=== PATIENT | female | born 1990 | race Caucasian/White ===

== ENCOUNTER 2021-12-16 00:27 | Inpatient (IN) | payer OTHER ==
[2021-12-16 05:06] LABS: Absolute Neutrophil Ct (ANC) 7.82 x10^3/uL (1.4-6.9); Basophil (Absolute #) 0.04 x10^3/uL (0-0.4); Eosinophil % 0.7 % (0.00-5.0); Eosinophil (Absolute #) 0.08 x10^3/uL (0-0.5); Hematocrit 34.2 % (35-47); Hemoglobin 11.3 g/dL (12.0-16.0); Lymphocyte (Absolute #) 2.64 x10^3/uL (1.0-4.6); Mean Cell Volume 86.6 fL (78-100); Mean Corpuscular Hemoglobin 28.6 pg (26-32); Mean Platelet Volume 10.8 fL (7.5-11.0); Monocyte (Absolute #) 0.85 x10^3/uL (0.0-1.3); Monocytes % 7.4 % (0.0-12.0); Platelet Count 193 x10^3/uL (150-450); Red Blood Count 3.95 x10^6/uL (4.1-5.4); Red Cell Distribution Width 14.5 % (11.5-14.0); White Blood Count 11.5 x10^3/uL (4.0-10.5)
[2021-12-16 05:32] LABS: Amphetamine,Urine NEGATIVE (NEGATIVE); Barbiturate,Urine NEGATIVE (NEGATIVE); Benzodiazepine,Urine NEGATIVE (NEGATIVE); Cocaine,Urine NEGATIVE (NEGATIVE); Methadone,Urine NEGATIVE (NEGATIVE); Opiate,Urine NEGATIVE (NEGATIVE); PCP,Urine NEGATIVE (NEGATIVE); THC,Urine NEGATIVE (NEGATIVE)
[2021-12-16 05:41] LABS: ABO TYPING O; Antibody Screen NEGATIVE (NEGATIVE); RH TYPING NEGATIVE
[2021-12-16 05:45] LABS: Bacteria FEW /HPF (NEGATIVE); Epithelial Cells RARE /HPF (FEW); Mucus SLIGHT /HPF (NEGATIVE)
[2021-12-16 05:48] LABS: Appearance SLIGHTLY CLOUDY (CLEAR); Bilirubin NEGATIVE (NEGATIVE); Glucose NEGATIVE (NEGATIVE); Ketones NEGATIVE (NEGATIVE); Ph 6.5 (5-6); Protein,Urine Dip 30 (Negative); RBC NEGATIVE Ery/ul (0-5); Specific Gravity 1.015 (1.005-1.025); Urobilinogen 0.2 mg/dL (0-1)
[2021-12-16 05:49] LABS: Dipstick done @ ? MAIN LAB; Nitrite NEGATIVE (NEGATIVE); Urine Cultured Indicated? YES
[2021-12-16] MEDS ORDERED: Lactated Ringers 1,000 ML IV ONE ×4 (06:47→16:47)
[2021-12-16] MEDS ORDERED: PITOCIN 30 UNITS/ LR 500 ML 500 ML IV ONE (06:47)
[2021-12-16] MEDS: Lactated Ringers 1,000 ML IV SCH ×2 (06:51→10:18)
[2021-12-16] MEDS ORDERED: BRETHINE 1 MG/ML SQ PRN (07:00)
[2021-12-16] MEDS ORDERED: XYLOCAINE 1% HCL 20 ML MDV IJ PRN (08:00)
[2021-12-16] MEDS ORDERED: PITOCIN 30 UNITS/ LR 500 ML 30 UNITS/500 ML PLAST..BAG IV SCH (08:00)
[2021-12-16] MEDS ORDERED: LANSINOH 40 GM TOP PRN (15:50)
[2021-12-16] MEDS ORDERED: TYLENOL EXTRA STRENGTH 500 MG PO PRN ×2 (15:50→22:00)
[2021-12-16] MEDS ORDERED: CORTISONE 1% CREAM TP PRN (15:50)
[2021-12-16] MEDS ORDERED: TUCKS TP PRN (15:50)
[2021-12-16] MEDS ORDERED: Anucort-HC SUPPOSITORY PR PRN (15:50)
[2021-12-16] MEDS ORDERED: Ambien 10 MG PO PRN (15:50)
[2021-12-16] MEDS ORDERED: Dermoplast Spray TP PRN (15:50)
[2021-12-16] MEDS ORDERED: Dulcolax 10 MG SUPP PR PRN (15:50)
[2021-12-16] MEDS ORDERED: NORCO 5/325 MG PO PRN (15:50)
[2021-12-16] MEDS ORDERED: Mylicon 80MG PO PRN (15:50)
[2021-12-16] MEDS: MOTRIN 400 MG PO PRN (18:20)
[2021-12-16] MEDS ORDERED: Zofran 4 MG/2 ML VIAL IV PRN (22:00)
[2021-12-16] MEDS: Docusate Sodium 100 MG PO SCH (22:00)
[2021-12-16] MEDS ORDERED: CYTOTEC PO SCH (23:00)
[2021-12-17] MEDS: MOTRIN 400 MG PO PRN ×3 (02:15→22:21)
[2021-12-17 04:58] LABS: Absolute Neutrophil Ct (ANC) 11.86 x10^3/uL (1.4-6.9); Basophil (Absolute #) 0.04 x10^3/uL (0-0.4); Eosinophil % 0.4 % (0.00-5.0); Eosinophil (Absolute #) 0.06 x10^3/uL (0-0.5); Hematocrit 28.9 % (35-47); Hemoglobin 9.5 g/dL (12.0-16.0); Lymphocyte (Absolute #) 2.18 x10^3/uL (1.0-4.6); Lymphocytes % 14.2 % (24.0-44.0); Mean Cell Volume 86.8 fL (78-100); Mean Corpuscular Hemoglobin 28.5 pg (26-32); Mean Corpuscular Hgb Concent. 32.9 g/dL (32-36); Mean Platelet Volume 11.2 fL (7.5-11.0); Monocytes % 7.2 % (0.0-12.0); Neutrophil % 77.4 % (36.0-66.0); Platelet Count 198 x10^3/uL (150-450); Red Blood Count 3.33 x10^6/uL (4.1-5.4); Red Cell Distribution Width 14.7 % (11.5-14.0); White Blood Count 15.3 x10^3/uL (4.0-10.5)
[2021-12-17] MEDS ORDERED: Lactated Ringers 1,000 ML IV ONE (07:00)
[2021-12-17] MEDS ORDERED: PITOCIN 30 UNITS/ LR 500 ML 30 UNITS/500 ML PLAST..BAG IV SCH (07:00)
[2021-12-17] MEDS ORDERED: Ephedrine Sulfate 50 MG/ML IV PRN (08:00)
[2021-12-17] MEDS ORDERED: FENTANYL 2 MCG-BUPIV 0.125%-NS 250 ML Epidur 250 ML EPIDURAL SCH (08:00)
[2021-12-17] MEDS ORDERED: FERREX 150 PO SCH (10:00)
[2021-12-17] MEDS ORDERED: Rhogam Plus 300 MCG IM ONE (10:00)
[2021-12-17] MEDS: Docusate Sodium 100 MG PO SCH ×2 (11:57→22:21)
--- NOTE | 2021-12-17 15:48 | PCM.NOTE ---
Date and Time: 12/17/21 5175 Subjective Assessment: PPD 1 SP PT RESTING IN BED AND DOING WELL. VSS AFEBRILE ABD; SOFT UTERUS; FIRM LOCHIA; MILD EXT; MILD EDEMA 1/4 B/L HGB; 9.5 A/P SP PPD 1 WITH MANUAL EXTRACTION OF PLACENTA DOING WELL ANTICIPATE DISCHARGE TOMORROW OBJECTIVE DATA Vital Signs: Vital Signs - 24 hr Temp Pulse Resp BP Pulse Ox 12/17/21 14:00 93 H 20 114/59 12/17/21 08:00 98.4 F 95 H 20 112/53 12/17/21 04:00 98.5 F 98 H 19 123/60 98 12/17/21 02:37 98.5 F 93 H 19 104/58 98 12/17/21 00:00 98.3 F 96 H 18 107/56 98 12/16/21 22:00 122/58 12/16/21 20:00 98.3 F 106 H 19 124/59 97 12/16/21 18:00 100 H 20 118/64 12/16/21 17:30 84 18 106/54 12/16/21 17:00 81 18 114/54 100 12/16/21 16:30 95 H 18 107/55 100 12/16/21 16:15 91 H 22 100/56 100 12/16/21 16:00 102 H 20 100/56 Pain Assessment - Last Documented Pain Intensity [Medial] 0 Pain Intensity 0 Pain Scale Used 0-10 Pain Scale Intake and Output: Intake & Output 12/15/21 12/16/21 12/17/21 12/18/21 11:59 11:59 11:59 11:59 Intake Total 2000 6800 Output Total 50 1050 Balance 1950 5750 Weight 108.862 kg Lab Results: Lab Results-Last 24 Hours 12/16/21 12/17/21 Range/Units 16:45 04:25 WBC 15.3 H (4.0-10.5) x10^3/uL RBC 3.33 L (4.1-5.4) x10^6/uL Hgb 9.5 L (12.0-16.0) g/dL Hct 28.9 L (35-47) % MCV 86.8 (78-100) fL MCH 28.5 (26-32) pg MCHC 32.9 (32-36) g/dL RDW 14.7 H (11.5-14.0) % Plt Count 198 (150-450) x10^3/uL MPV 11.2 H (7.5-11.0) fL Gran % 77.4 H (36.0-66.0) % Immature Gran % (Auto) 0.5 H (0.00-0.4) % Nucleat RBC Rel Count 0.0 (0.00-0.1) % Eos # (Auto) 0.06 (0-0.5) x10^3/uL Immature Gran # (Auto) 0.08 H (0.00-0.03) x10^3u/L Absolute Lymphs (auto) 2.18 (1.0-4.6) x10^3/uL Absolute Monos (auto) 1.10 (0.0-1.3) x10^3/uL Absolute Nucleated RBC 0.00 (0.00-0.01) x10^3u/L Lymphocytes % 14.2 L (24.0-44.0) % Monocytes % 7.2 (0.0-12.0) % Eosinophils % 0.4 (0.00-5.0) % Basophils % 0.3 (0.0-0.4) % Absolute Granulocytes 11.86 H (1.4-6.9) x10^3/uL Basophils # 0.04 (0-0.4) x10^3/uL Screen SEE SEPARATE REPORT Assessment/Plan (1) Vaginal delivery Current Visit: Yes Status: Acute Code(s): O80 - ENCOUNTER FOR FULL-TERM UNCOMPLICATED DELIVERY (2) Retained placenta Current Visit: Yes Status: Acute Code(s): O73.0 - RETAINED PLACENTA WITHOUT HEMORRHAGE
[2021-12-17 22:52] VITALS: O2SAT 100
--- NOTE | 2021-12-18 07:34 | PCM.NOTE ---
Date and Time: 12/18/21732 Subjective Assessment: PPD 2 SP PT RESTING IN BED AND DOING VERY WELL VSS AFEBRILE ABD; SOFT UTERUS; FIRM LOCHIA; MILD A/P SP PPD 2 DC HOME TODAY FU OFFICE IN 3 WKS OBJECTIVE DATA Vital Signs: Vital Signs - 24 hr Temp Pulse Resp BP Pulse Ox 12/18/21 02:00 97.8 F 88 18 106/57 12/17/21 20:00 97.9 F 83 18 127/73 100 12/17/21 14:00 93 H 20 114/59 12/17/21 08:00 98.4 F 95 H 20 112/53 Pain Assessment - Last Documented Pain Intensity [Medial] 0 Pain Intensity 5 Pain Scale Used 0-10 Pain Scale Intake and Output: Intake & Output 12/15/21 12/16/21 12/17/21 12/18/21 11:59 11:59 11:59 11:59 Intake Total 2000 6800 1400 Output Total 50 1050 Balance 1950 5750 1400 Weight 108.862 kg Assessment/Plan (1) Vaginal delivery Current Visit: Yes Status: Acute Code(s): O80 - ENCOUNTER FOR FULL-TERM UNCOMPLICATED DELIVERY (2) Retained placenta Current Visit: Yes Status: Acute Code(s): O73.0 - RETAINED PLACENTA WITHOUT HEMORRHAGE
--- NOTE | 2021-12-18 07:37 | PCM.DS ---
Discharge Summary Date of Admission: 12/16/21 08:47 Admitting Physician: GUCCI HUNTER DO Consults: Consults on Case 12/17/21 08:00 Notify Anesthesia Provider PRN Primary Care Provider: MANUEL CORLEY Allergies Allergies No Known Drug Allergies Allergy (Verified 12/16/21 04:46) Hospital Summary - Hospital Course Hospital Course: PT ADMITTED ON DECEMBER 16 FOR EARLY LABOR AND WAS SUBSEQUENTLY INDUCED AND DELIVERED LIVE [facility]ABY [facility]Y VIA WITHOUT COMPLICATION ON THIS DAY. DURING PERIOD DID WELL AND NOW STABLE FOR DISCHARGE. PT HAD STABLE HGB LEVEL AT 9.5 AND WAS ADVISED TO FU IN OFFICE IN 3 WKS FOR CARE. ALL QUESTIONS ANSWERED TO HER SATISFACTION AND AT THIS TIME PT STABLE FOR DISCHARGE. DURING DELIVERY PT WAS NOTED HAVING AN ELAPSED TIME OF ABOUT 30 MINUTES BEFORE WHICH PLACENTA HAD NOT DELIVERED AND MANUAL REMOVAL OF PLACENTA WAS TAKEN PLACE WITHOUT COMPLICATION. - Vitals & Intake/Output Vital Signs: Vital Signs Temperature 97.8 F 12/18/21 02:00 Pulse Rate 88 12/18/21 02:00 Respiratory Rate 18 12/18/21 02:00 Blood Pressure 106/57 12/18/21 02:00 O2 Sat by Pulse Oximetry 100 12/17/21 20:00 Intake & Output: Intake & Output 12/15/21 12/16/21 12/17/21 12/18/21 11:59 11:59 11:59 11:59 Intake Total 2000 6800 1400 Output Total 50 1050 Balance 1950 5750 1400 Weight 108.862 kg - Lab Result Diagrams: 12/17/21 04:25 Micro Results-Entire Visit: Microbiology 12/16/21 19:00 Urine Culture - Preliminary Catherized NO GROWTH TO DATE 12/16/21 05:30 Urine Culture - Final Clean Catch Midstream MIXED GREGORY; 3 OR MORE TYPES. NO PREDOMINANT ORGANISM. NO FURTHER WORKUP. PLEASE RESUBMIT IF CLINICALLY INDICATED. Final Diagnosis/Problem List - Final Discharge Diagnosis/Problem (1) Vaginal delivery Current Visit: Yes Status: Acute Code(s): O80 - ENCOUNTER FOR FULL-TERM UNCOMPLICATED DELIVERY (2) Retained placenta Current Visit: Yes Status: Acute Code(s): O73.0 - RETAINED PLACENTA WITHOUT HEMORRHAGE - Discharge Disposition: Home, Self-Care Condition: Stable Prescriptions: No Action Vits96/Iron Fum/Folic [ Tablet] 1 each PO DAILY Follow up with: MANUEL CORLEY MD [Primary Care Provider] - GUCCI HUNTER DO [ACTIVE STAFF] - 3 weeks
[2021-12-18 07:57] LABS: HBsAg Screen Negative (Negative)
[2021-12-18] MEDS: MOTRIN 400 MG PO PRN (08:50)
[2021-12-18 11:42] VITALS: BP 130/72; PULSE 103
== END 2021-12-18 12:00 | disposition home or self-care (01) | DRG 807 ==
LOC: OB 04:03 → OBSVTOIN 08:47 → OB 08:47
PROVIDERS: ADMIT Obstetrics & Gynecology; ATTEND Obstetrics & Gynecology
PROC: 10E0XZZ Delivery of Products of Conception, External Approach (ICD-10-PCS; principal; 2021-12-16)
DX: O69.81X0 Labor and delivery complicated by cord around neck, without compression, not applicable or unspecified (principal); Z37.0 Single live birth; O73.0 Retained placenta without hemorrhage; Z3A.39 39 weeks gestation of pregnancy
CPT/HCPCS: 36415; 59409; 80307; 81015; 84112; 85025; 85461; 86850; 86900; 86901; 87086; 87340; 96372; J2590; J2790; A9270-GY

== ENCOUNTER 2022-01-22 01:11 | Emergency (ER) | payer OTHER ==
[2022-01-22 01:59] LABS: Basophil (Absolute #) 0.03 x10^3/uL (0-0.4); Eosinophil % 2.4 % (0.00-5.0); Eosinophil (Absolute #) 0.18 x10^3/uL (0-0.5); Hematocrit 37.9 % (35-47); Hemoglobin 11.8 g/dL (12.0-16.0); Lymphocyte (Absolute #) 3.55 x10^3/uL (1.0-4.6); Lymphocytes % 48.2 % (24.0-44.0); Mean Cell Volume 86.5 fL (78-100); Mean Corpuscular Hemoglobin 26.9 pg (26-32); Mean Corpuscular Hgb Concent. 31.1 g/dL (32-36); Mean Platelet Volume 9.8 fL (7.5-11.0); Monocyte (Absolute #) 0.58 x10^3/uL (0.0-1.3); Monocytes % 7.9 % (0.0-12.0); Neutrophil % 40.8 % (36.0-66.0); Platelet Count 319 x10^3/uL (150-450); Red Blood Count 4.38 x10^6/uL (4.1-5.4); Red Cell Distribution Width 13.7 % (11.5-14.0); White Blood Count 7.4 x10^3/uL (4.0-10.5)
[2022-01-22 02:13] LABS: D-DIMER QUANTITATIVE 0.26 mg/L (0.0-0.50); INR 0.99 (0.8-3.0); PROTIME 10.5 SECONDS (9.4-12.5); PTT 28.2 SECONDS (25.1-36.5)
[2022-01-22 02:23] LABS: ALBUMIN 4.9 g/dL (3.5-5.0); ALKALINE PHOSPHATASE 91 U/L (38-126); BLOOD UREA NITROGEN 14 mg/dL (7-17); CHLORIDE 103 mmol/L (98-107); Calcium 9.7 mg/dL (8.4-10.2); Carbon Dioxide 24 mmol/L (22-30); Creatinine 1 0.75 mg/dL (0.52-1.04); EST GLOMERULAR FILTRATION RATE > 60.0 ML/MIN; Glucose 95 mg/dL (74-106); NT PRO BNP 64.5 pg/mL (0-450); Potassium 3.9 mmol/L (3.5-5.1); SGOT/AST 43 U/L (14-36); SGPT/ALT 39 U/L (0-35); SODIUM 139 mmol/L (137-145); Total Protein 7.7 g/dL (6.3-8.2)
--- NOTE | 2022-01-22 02:48 | ERPHSYRPT ---
- History of Present Illness Time Seen by Provider: 01/22/22 01:20 Historian: patient Exam Limitations: no limitations Patient Subjective Stated Complaint: pt states she was sleeping and was awoken by stabbing pain in sternum and right and left upper ribs. Triage Nursing Assessment: pt is holding chest and grimacing, states she having pain in chest and is nauseated at this time. Physician History: Patient is a 31-year-old female presents to our ED for evaluation of chest pain. Patient states she was sleeping and the chest pain awoke her from her sleep. Chest pain described as a stabbing sensation that is substernal. Patient also states she feels a pain in her left upper ribs. Patient is mildly nauseated. No vomiting. No significant cardiac history. Symptoms are mild to moderate in intensity. No specific worsening or improving factors. Patient denies a history of the same. She voices no other complaints or concerns at this time. Timing/Duration: today Activities at Onset: none Quality: sharpness Location: substernal Chest Pain Radiation: no radiation Severity of Pain-Max: moderate Severity of Pain-Current: mild Modifying Factors: Improves With: nothing Associated Symptoms: nausea, No palpitations, No heartburn, No diaphoresis, No fever, No syncope, No headache, No edema, No back pain Prior Chest Pain/Cardiac Workup: no prior chest pain Nitro Today/Relief: no nitro taken today Aspirin Treatment Today: no aspirin today Allergies/Adverse Reactions: No Known Drug Allergies Allergy (Verified 12/16/21 04:46) Home Medications: Vits96/Iron Fum/Folic [ Tablet] 1 each PO DAILY 12/16/21 [History] Travel Risk - International Travel Have you traveled outside of the country in past 3 weeks: No - Coronavirus Screening Are you exhibiting any of the following symptoms?: No Close contact with a COVID-19 positive Pt in past 14-21 Days: No - Vaccine Status Have you recieved a Covid-19 vaccination: No - Review of Systems Constitutional: No Symptoms, No Fever, No Chills Eyes: No Symptoms Ears, Nose, & Throat: No Symptoms Respiratory: No Symptoms, No Cough, No Dyspnea Cardiac: No Symptoms, No Chest Pain, No Edema, No Syncope Abdominal/Gastrointestinal: No Symptoms, No Abdominal Pain, No Nausea, No Vomiting, No Diarrhea Genitourinary Symptoms: No Symptoms, No Dysuria Musculoskeletal: No Symptoms, No Back Pain, No Neck Pain Skin: No Symptoms, No Rash Neurological: No Symptoms, No Dizziness, No Focal Weakness, No Sensory Changes Psychological: No Symptoms Endocrine: No Symptoms Hematologic/Lymphatic: No Symptoms All Other Systems: Reviewed and Negative - Past Medical History Pertinent Past Medical History: Yes Neurological History: No Pertinent History ENT History: No Pertinent History Cardiac History: No Pertinent History Respiratory History: No Pertinent History Endocrine Medical History: No Pertinent History Musculoskeletal History: No Pertinent History GI Medical History: No Pertinent History History: No Pertinent History Psycho-Social History: No Pertinent History Female Reproductive Disorders: No Pertinent History Other Medical History: 2012, GDM, VACCUM DELIVERY - Past Surgical History Past Surgical History: Yes Neuro Surgical History: No Pertinent History Cardiac: No Pertinent History Respiratory: No Pertinent History Gastrointestinal: Appendectomy Genitourinary: No Pertinent History Musculoskeletal: No Pertinent History Female Surgical History: No Pertinent History Other Surgical History: APPY IN 2019 - Social History Smoking Status: Former smoker Exposure to second hand smoke: No Drug Use: none - Female History Hx Last Menstrual Period: 11 months ago Hx Now: No - Nursing Vital Signs Nursing Vital Signs: Initial Vital Signs Temperature 97.5 F 01/22/22 01:12 Pulse Rate 80 01/22/22 01:12 Respiratory Rate 18 01/22/22 01:12 Blood Pressure 150/89 01/22/22 01:12 O2 Sat by Pulse Oximetry 100 01/22/22 01:12 Pain Scale Pain Intensity 2 - Physical Exam General Appearance: no apparent distress, alert Eye Exam: PERRL/EOMI, eyes nml inspection Ears, Nose, Throat Exam: normal ENT inspection, moist mucous membranes Neck Exam: normal inspection, non-tender, supple, full range of motion Respiratory Exam: normal breath sounds, lungs clear, No respiratory distress Cardiovascular Exam: regular rate/rhythm, normal heart sounds, normal peripheral pulses Gastrointestinal/Abdomen Exam: soft, No tenderness, No mass Back Exam: normal inspection, No CVA tenderness, No vertebral tenderness Extremity Exam: normal inspection, normal range of motion Neurologic Exam: alert, oriented x 3, cooperative, normal mood/affect, sensation nml, No motor deficits Skin Exam: normal color, warm, dry Lymphatic Exam: No adenopathy SpO2 Interpretation: normal SpO2: 96 O2 Delivery: Room Air - Course Nursing assessment & vital signs reviewed: Yes EKG Interpreted by Me: RATE (63), Sinus Rhythm, NORMAL AXIS, NORMAL INTERVALS, Non-specific ST Changes - Radiology Exams Chest X-ray Interpretation: Interpreted by me (Lungs are clear. Normal cardiac silhouette. Intact bony thorax) Ordered Tests: Active Orders 24 hr Category Date Time Status Catalyst Operator STAT Care 01/22/22 01:27 Active EKG-ER Only STAT Care 01/22/22 01:26 Active IV Insertion STAT Care 01/22/22 01:26 Active Pulse Oximetry (ED) STAT Care 01/22/22 01:26 Active CHEST 1 VIEW (PORTABLE) Stat Exams 01/22/22 01:27 Taken CBC Q48H Lab 01/23/22 06:00 Ordered CBC Q48H Lab 01/25/22 06:00 Ordered CBC Q48H Lab 01/27/22 06:00 Ordered CBC Q48H Lab 01/29/22 06:00 Ordered CBC Q48H Lab 01/31/22 06:00 Ordered CBC Q48H Lab 02/02/22 06:00 Ordered CBC Q48H Lab 02/04/22 06:00 Ordered CBC W DIFF Stat Lab 01/22/22 01:54 Completed CMP Stat Lab 01/22/22 01:54 Completed D-DIMER QUANTITATIVE Stat Lab 01/22/22 01:54 Completed NT PRO BNP Stat Lab 01/22/22 01:54 Completed PROTIME WITH INR Stat Lab 01/22/22 01:54 Completed PTT Q4H Lab 01/23/22 01:30 Ordered PTT Q4H Lab 01/23/22 05:30 Ordered PTT Q4H Lab 01/23/22 09:30 Ordered PTT Q4H Lab 01/23/22 13:30 Ordered PTT Q4H Lab 01/23/22 17:30 Ordered PTT Q4H Lab 01/23/22 21:30 Ordered PTT Stat Lab 01/22/22 01:54 Completed TROPONIN Stat Lab 01/22/22 01:54 Completed TROPONIN Stat Lab 01/22/22 03:54 Completed Lab/Rad Data: Laboratory Result Diagrams 01/22/22 01:54 01/22/22 01:54 Laboratory Results 01/22/22 01/22/22 01/22/22 Range/Units 03:54 01:54 01:54 WBC (4.0-10.5) x10^3/uL RBC (4.1-5.4) x10^6/uL Hgb (12.0-16.0) g/dL Hct (35-47) % MCV (78-100) fL MCH (26-32) pg MCHC (32-36) g/dL RDW (11.5-14.0) % Plt Count (150-450) x10^3/uL MPV (7.5-11.0) fL Gran % (36.0-66.0) % Immature Gran % (Auto) (0.00-0.4) % Nucleat RBC Rel Count (0.00-0.1) % Eos # (Auto) (0-0.5) x10^3/uL Immature Gran # (Auto) (0.00-0.03) x10^3u/L Absolute Lymphs (auto) (1.0-4.6) x10^3/uL Absolute Monos (auto) (0.0-1.3) x10^3/uL Absolute Nucleated RBC (0.00-0.01) x10^3u/L Lymphocytes % (24.0-44.0) % Monocytes % (0.0-12.0) % Eosinophils % (0.00-5.0) % Basophils % (0.0-0.4) % Absolute Granulocytes (1.4-6.9) x10^3/uL Basophils # (0-0.4) x10^3/uL PT 10.5 (9.4-12.5) SECONDS INR 0.99 (0.8-3.0) APTT 28.2 (25.1-36.5) SECONDS D-Dimer 0.26 (0.0-0.50) mg/L Sodium (137-145) mmol/L Potassium (3.5-5.1) mmol/L Chloride (98-107) mmol/L Carbon Dioxide (22-30) mmol/L Anion Gap (5-15) MEQ/L BUN (7-17) mg/dL Creatinine (0.52-1.04) mg/dL Estimated GFR ML/MIN Glucose (74-106) mg/dL Calcium (8.4-10.2) mg/dL Total Bilirubin (0.2-1.3) mg/dL AST (14-36) U/L ALT (0-35) U/L Alkaline Phosphatase (38-126) U/L Troponin I < 0.012 < 0.012 (0.000-0.034) ng/mL NT-Pro-B Natriuret Pep (0-450) pg/mL Serum Total Protein (6.3-8.2) g/dL Albumin (3.5-5.0) g/dL 01/22/22 01/22/22 Range/Units 01:54 01:54 WBC 7.4 (4.0-10.5) x10^3/uL RBC 4.38 (4.1-5.4) x10^6/uL Hgb 11.8 L (12.0-16.0) g/dL Hct 37.9 (35-47) % MCV 86.5 (78-100) fL MCH 26.9 (26-32) pg MCHC 31.1 L (32-36) g/dL RDW 13.7 (11.5-14.0) % Plt Count 319 (150-450) x10^3/uL MPV 9.8 (7.5-11.0) fL Gran % 40.8 (36.0-66.0) % Immature Gran % (Auto) 0.3 (0.00-0.4) % Nucleat RBC Rel Count 0.0 (0.00-0.1) % Eos # (Auto) 0.18 (0-0.5) x10^3/uL Immature Gran # (Auto) 0.02 (0.00-0.03) x10^3u/L Absolute Lymphs (auto) 3.55 (1.0-4.6) x10^3/uL Absolute Monos (auto) 0.58 (0.0-1.3) x10^3/uL Absolute Nucleated RBC 0.00 (0.00-0.01) x10^3u/L Lymphocytes % 48.2 H (24.0-44.0) % Monocytes % 7.9 (0.0-12.0) % Eosinophils % 2.4 (0.00-5.0) % Basophils % 0.4 (0.0-0.4) % Absolute Granulocytes 3.00 (1.4-6.9) x10^3/uL Basophils # 0.03 (0-0.4) x10^3/uL PT (9.4-12.5) SECONDS INR (0.8-3.0) APTT (25.1-36.5) SECONDS D-Dimer (0.0-0.50) mg/L Sodium 139 (137-145) mmol/L Potassium 3.9 (3.5-5.1) mmol/L Chloride 103 (98-107) mmol/L Carbon Dioxide 24 (22-30) mmol/L Anion Gap 16.0 H (5-15) MEQ/L BUN 14 (7-17) mg/dL Creatinine 0.75 (0.52-1.04) mg/dL Estimated GFR > 60.0 ML/MIN Glucose 95 (74-106) mg/dL Calcium 9.7 (8.4-10.2) mg/dL Total Bilirubin 0.50 (0.2-1.3) mg/dL AST 43 H (14-36) U/L ALT 39 H (0-35) U/L Alkaline Phosphatase 91 (38-126) U/L Troponin I (0.000-0.034) ng/mL NT-Pro-B Natriuret Pep 64.5 (0-450) pg/mL Serum Total Protein 7.7 (6.3-8.2) g/dL Albumin 4.9 (3.5-5.0) g/dL - Progress Progress: improved Air Movement: good Progress Note: Patient reassessed. She is asymptomatic. D-dimer negative. Chest x-ray negative. Troponin negative x2. EKG normal sinus rhythm. No indication for further work-up at this time. Will discharge home. Patient agrees to follow-up with her primary care doctor within 48 hours for evaluation. Portions of this note were created with voice recognition technology. There may be grammatical, spelling, punctuation or sound alike errors 01/22/22 05:09 Blood Culture(s) Obtained: No Antibiotics given: No Counseled pt/family regarding: lab results, diagnosis, need for follow-up, rad r esults - Departure Departure Disposition: Home Clinical Impression: Chest pain Condition: Stable Critical Care Time: No Referrals: MANUEL CORLEY MD [Primary Care Provider] - Follow up/PCP as directed Additional Instructions: Discharge/Care Plan IAN MERIDA was seen on 01/22/22 in the Emergency Room. The patient was counseled regarding Diagnosis,Lab results, Imaging studies, need for follow up and when to return to the Emergency Room. Prescriptions given: Discharge Note I have spoken with the patient and/or caregivers. I have explained the patient's condition, diagnosis and treatment plan based on the information available to me at this time. I have answered the patient's and/or caregiver's questions and addressed any concerns. The patient and/or caregivers have as good understanding of the patient's diagnosis, condition and treatment plan as can be expected at this point. The vital signs have been stable. The patient's condition is stable and appropriate for discharge from the emergency department. The patient will pursue further outpatient evaluation with the primary care physician or other designated or consulting physician as outlined in the discharge instructions. The patient and/or caregivers are agreeable to this plan of care and follow-up instructions have been explained in detail. The patient and/or caregivers have received these instruction. The patient/and or caregivers are aware that any significant change in condition or worsening of symptoms should prompt an immediate return to this or the closest emergency department or call 911.
[2022-01-22 04:18] VITALS: BP 131/79; PULSE 73
[2022-01-22 05:11] VITALS: O2SAT 96
--- NOTE | 2022-01-22 09:45 | XRAY ---
Indication: Chest pain. Comparison: None Portable chest demonstrates normal heart, lungs, and bony thorax.
== END 2022-01-22 05:17 | disposition home or self-care (01) ==
LOC: ED 01:11
DX: R07.9 Chest pain, unspecified (principal); R11.0 Nausea; Z28.310 Unvaccinated for COVID-19
CPT/HCPCS: 36000; 36415; 71045; 80053; 83880; 84484; 85025; 85379; 85610; 85730; 93005; 93041; 94760; 99284

== ENCOUNTER 2025-03-28 06:11 | Day surgery (SDC) | payer OTHER ==
[2025-03-28] MEDS ORDERED: CEFAZOLIN SODIUM ONE (06:24)
[2025-03-28] MEDS ORDERED: Pepcid 20 MG VIAL IV ONE (06:26)
[2025-03-28] MEDS: Reglan 10 MG/2 ML IV ONE (06:27)
[2025-03-28] MEDS: Transderm Scop 1.5MG Patch TOP PRN (06:28)
[2025-03-28 06:30] LABS: HCG URINE TEST NEGATIVE (NEGATIVE)
[2025-03-28] MEDS: Lactated Ringers 1,000 ML IV SCH (06:30)
[2025-03-28] MEDS: Pepcid 20 MG PO ONE (06:30)
[2025-03-28 06:42] VITALS: RESP 16
[2025-03-28] MEDS ORDERED: ASTRINGYN 8 GM TP ONE (07:08)
[2025-03-28] MEDS ORDERED: Xylocaine 1% Vial 30 ML PF IJ ONE (07:09)
[2025-03-28] MEDS ORDERED: propofoL IV ONE ×2 (07:56→08:04)
[2025-03-28] MEDS ORDERED: XYLOCAINE 1%/Epi 1:100000 MDV 20 ML ONE (08:02)
[2025-03-28] MEDS ORDERED: Reglan 10 MG/2 ML ONE (08:04)
[2025-03-28] MEDS ORDERED: Zofran 4 MG/2 ML VIAL ONE ×2 (08:04)
[2025-03-28] MEDS ORDERED: OFIRMEV 100 ML IV ONE (08:09)
[2025-03-28] MEDS ORDERED: TORAdol 30 mg Injection ONE (08:15)
[2025-03-28] MEDS ORDERED: Phenergan 25 MG INJ ONE (08:50)
[2025-03-28] MEDS ORDERED: Compazine 10 MG/2 ML ONE (09:12)
[2025-03-28 09:33] VITALS: O2SAT 100
[2025-03-28 09:40] VITALS: BP 127/76; PULSE 78
[2025-03-28 09:41] VITALS: TEMP 97
--- NOTE | 2025-03-30 11:08 | OP ---
SURGERY DATE/TIME: 03/28/2025 [id number] PREOPERATIVE DIAGNOSIS: Recurrent cervical dysplasia. POSTOPERATIVE DIAGNOSIS: Recurrent cervical dysplasia. PROCEDURE: Loop electrosurgical excision procedure. SURGEON: Mars Holley DO SUPERVISOR SEAMING: ST April ANESTHESIA: General. ESTIMATED BLOOD LOSS: Minimal. COMPLICATIONS: None. DESCRIPTION OF PROCEDURE AND FINDINGS: The risks, benefits, indications, and alternatives of the procedure were reviewed with the patient prior to the procedure. The patient understood the risks of infection, bleeding, bowel injury, bladder injury, cervical stenosis, reduced libido, as well as pelvic infection that can be associated with this procedure and desires to have the surgery as a possible means to alleviate her current medical condition. At this point, the patient was taken to the operating room, given general sedation, placed in dorsal lithotomy position and prepped and draped in the usual sterile fashion. A coated speculum was then placed in the patient's vagina and the cervix was then injected circumferentially with 1% lidocaine with epinephrine and approximately 8 mL was used. From this point, the loop instrument was then used and with a [id number] motion the loop instrument was used to excise the ectocervical tissue with a depth of 7 to 8 mm of ectocervical tissue and was done so without complication. An additional 2 to 3 mm of endocervical tissue was taken and excised in a similar fashion. Hemostasis was obtained by placing the loop superintendent electric power ball on the surface of the cervix and hemostasis was obtained. From this point, after complete hemostasis all instruments were removed from the patient's vaginal region. The patient was then taken out of anesthesia and was then taken to the recovery room in stable condition. All instruments and laps were accounted for x2.
== END 2025-03-28 09:50 | disposition home or self-care (01) ==
LOC: SDC 06:11
PROVIDERS: ATTEND Obstetrics & Gynecology
DX: N87.9 Dysplasia of cervix uteri, unspecified (principal)